=== PATIENT | male | born 1965 | race American Indian/Alaskan Native ===

== ENCOUNTER 2022-01-14 10:02 | Emergency (ER) | payer OTHER ==
[2022-01-14] MEDS ORDERED: ASPIRIN 81 MG TAB CHEW PO ONE (10:37)
--- NOTE | 2022-01-14 10:44 | Emergency Department Report ---
ED General Adult HPI - General Chief complaint: Pain General Stated complaint: ARM PAIN Time Seen by Provider: 01/14/22 10:32 Source: patient, EMS Mode of arrival: Stretcher Limitations: No Limitations - History of Present Illness Initial comments: Patient is 56-year-old male with history of high blood pressure. Patient presented to the ER complaining of left arm pain that started this morning. 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 Patient denied any chest pain or shortness of breath. Patient stated that pain increases when he moves his arm. He denies any fever or chills. Severity scale (0 -10): 5 - Related Data Allergies Allergy/AdvReac Type Severity Reaction Status Date / Time No Known Allergies Allergy Unverified 01/14/22 10:12 ED Review of Systems ROS: Stated complaint: ARM PAIN Other details as noted in HPI Comment: All other systems reviewed and negative Constitutional: denies: chills, fever Respiratory: denies: cough, shortness of breath, SOB with exertion, SOB at rest Cardiovascular: denies: chest pain, palpitations, dyspnea on exertion Gastrointestinal: denies: abdominal pain, nausea, vomiting Musculoskeletal: denies: back pain Neurological: denies: headache, weakness, numbness, paresthesias, confusion ED Physical Exam - General Limitations: No Limitations General appearance: alert, in no apparent distress - Head Head exam: Present: atraumatic, normocephalic, normal inspection - Eye Eye exam: Present: normal appearance - ENT ENT exam: Present: normal exam, normal orophraynx, mucous membranes moist - Neck Neck exam: Present: normal inspection, full ROM. Absent: tenderness, meningismus - Respiratory Respiratory exam: Present: normal lung sounds bilaterally - Cardiovascular Cardiovascular Exam: Present: regular rate, normal rhythm, normal heart sounds - GI/Abdominal GI/Abdominal exam: Present: soft, normal bowel sounds. Absent: distended, tenderness, guarding, rebound, rigid, organomegaly, mass, bruit, pulsatile mass, hernia - Extremities Exam Extremities exam: Present: normal inspection, full ROM, normal capillary refill. Absent: tenderness, pedal edema, joint swelling, calf tenderness - Back Exam Back exam: Present: normal inspection, full ROM. Absent: CVA tenderness (R), CVA tenderness (L) - Neurological Exam Neurological exam: Present: alert, oriented X3, CN II-XII intact, normal gait, reflexes normal. Absent: motor sensory deficit - Psychiatric Psychiatric exam: Present: normal mood - Skin Skin exam: Present: warm, intact, normal color ED Course Vital Signs 01/14/22 01/14/22 01/14/22 10:09 10:36 10:42 Temperature 98.5 F Pulse Rate 74 Respiratory 16 13 Rate Blood Pressure Blood Pressure 147/87 [Left] O2 Sat by Pulse 98 100 100 Oximetry 01/14/22 01/14/22 01/14/22 10:46 11:00 11:16 Temperature Pulse Rate 69 68 68 Respiratory 21 22 13 Rate Blood Pressure 148/73 144/72 144/72 Blood Pressure [Left] O2 Sat by Pulse 98 100 100 Oximetry 01/14/22 01/14/22 01/14/22 11:30 11:46 12:00 Temperature Pulse Rate 61 67 70 Respiratory 18 14 11 L Rate Blood Pressure 154/82 142/81 149/87 Blood Pressure [Left] O2 Sat by Pulse 100 100 100 Oximetry ED Medical Decision Making - Lab Data Result diagrams: 01/14/22 11:07 01/14/22 11:07 - EKG Data -: EKG Interpreted by [place] EKG shows normal: sinus rhythm Rate: normal - EKG Data Interpretation: no acute changes - Radiology Data Radiology results: report reviewed - Medical Decision Making Patient is 56-year-old male with history of high blood pressure. Patient presented to the ER complaining of left arm pain that started this morning. 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 Patient denied any chest pain or shortness of breath. Patient stated that pain increases when he moves his arm. He denies any fever or chills. Patient remained chest pain-free. He is having left shoulder and left arm pain, sharp in nature. EKG is unremarkable. Chest x-ray is negative for acute finding. Labs reviewed and is unremarkable including a negative troponin. Patient received Toradol 30 mg IV and stated that he is feeling much better. Patient given prescription for Naprosyn and strongly advised to follow-up with his primary care physician for further management and to return to the ER if he develop any new symptoms. Critical care attestation.: If time is entered above; I have spent that time in minutes in the direct care of this critically ill patient, excluding procedure time. ED Disposition Clinical Impression: Left arm pain Disposition: HOME / SELF CARE / HOMELESS Is pt being admited?: No Condition: Stable Instructions: Radicular Pain Referrals: PRIMARY CARE,MD [Referring] - 3-5 Days
--- NOTE | 2022-01-14 11:04 | XRay Report ---
CHEST 1 VIEW INDICATION: Chest Pain. COMPARISON: None FINDINGS: Support devices: None. Heart: Within normal limits. Lungs/Pleura: No acute air space or interstitial disease. Additional findings: None. IMPRESSION: No acute findings. Signer Name: Juan Salazar Jr, MD Signed: 01/14/2022 10:56 AM Workstation Name: [id number]
[2022-01-14 11:50] LABS: Basophils % (Auto) 0.7 % (0.0-1.8); Eosinophils # (Auto) 0.2 K/mm3 (0.0-0.4); Eosinophils % (Auto) 4.2 % (0.0-4.3); Hematocrit 39.7 % (35.5-45.6); Hemoglobin 12.6 gm/dl (11.8-15.2); Lymphocytes # (Auto) 0.8 K/mm3 (1.2-5.4); Lymphocytes % (Auto) 18.2 % (13.4-35.0); Mean Corpuscular HGB Conc 32 % (32-34); Mean Corpuscular Volume 83 fl (84-94); Monocytes # (Auto) 0.4 K/mm3 (0.0-0.8); Monocytes % (Auto) 10.1 % (0.0-7.3); Platelet Count 243 K/mm3 (140-440); Red Blood Count 4.79 M/mm3 (3.65-5.03); Red Cell Distribution Width 14.2 % (13.2-15.2)
[2022-01-14 12:05] LABS: BUN/Creatinine Ratio 11; Blood Urea Nitrogen 15 mg/dL (9-20); Calcium 9.1 mg/dL (8.4-10.2); Hemolysis Index 4
[2022-01-14] MEDS ORDERED: KETOROLAC 30 MG/1 ML INJ IV ONE (12:12)
[2022-01-14 12:50] VITALS: BP 145/87
--- NOTE | 2022-01-15 12:18 | Electrocardiograph Report ---
[facility] Test Date: 2022-01-14 Test Time: 11:18:43 Pat Name: ABEBA BORRERO Department: Room: Gender: M Edge Sawyer: LIU : 1965 Requested By: LEONEL WIN Order Number: [id number] Reading MD: Derian Hoyos Measurements Intervals [place] Rate: 65 P: 34 WA: 122 QRS: 48 QRSD: 91 T: 26 QT: 408 QTc: 424 Interpretive Statements Sinus rhythm Probable left atrial enlargement Left ventricular hypertrophy No previous ECG available for comparison Electronically Signed On 01-15-2022 12:18:20 EDT by Derian Hoyos
== END 2022-01-14 15:53 | disposition home or self-care (01) ==
LOC: ED 10:02
DX: M79.602 Pain in left arm (principal)
CPT/HCPCS: 36415; 71045; 80048; 84484; 85025; 93005; 99284